=== PATIENT | male | born 1965 | race Caucasian/White ===

== ENCOUNTER 2021-01-29 18:54 | Emergency (ER) | payer SELFPAY | END 2021-01-29 19:47 | disposition left against medical advice (07) | LOC: ER1 18:54 | DX: Z53.21 Procedure and treatment not carried out due to patient leaving prior to being seen by health care provider (principal) ==

== ENCOUNTER 2022-01-01 16:30 | Emergency (ER) | payer OTHER ==
[2022-01-01 17:53] LABS: HEMOGLOBIN 14.1 gm/dl (14.0-17.5); RED BLOOD COUNT 4.29 M/UL (4.20-5.50); WHITE BLOOD COUNT 7.2 K/UL (4.5-11.0)
[2022-01-01 18:36] LABS: BUN/CREATININE RATIO 13 (0-10)
== END 2022-01-02 08:30 | disposition short-term general hospital (02) ==
LOC: ER1 16:30
PROVIDERS: Student in an Organized Health Care Education/Training Program
DX: I63.9 Cerebral infarction, unspecified (principal); R27.0 Ataxia, unspecified; Z20.822 Contact with and (suspected) exposure to COVID-19; J44.9 Chronic obstructive pulmonary disease, unspecified; F17.210 Nicotine dependence, cigarettes, uncomplicated; Z88.0 Allergy status to penicillin
CPT/HCPCS: 70450; 71045; 80053; 82550; 82553; 84484; 85025; 93005; 96374; 96376; 99285; G0480; J2060; U0002